=== PATIENT | male | born 1985 | race American Indian/Alaskan Native ===

== ENCOUNTER 2019-12-23 12:29 | Emergency (ER) | payer SELFPAY | END 2019-12-23 14:00 | disposition left against medical advice (07) | LOC: ED 12:29 | DX: M25.549 Pain in joints of unspecified hand (principal); Z53.21 Procedure and treatment not carried out due to patient leaving prior to being seen by health care provider ==

== ENCOUNTER 2020-04-21 00:15 | Observation (INO) | payer MEDICARE ==
[2020-04-21 02:13] LABS: Basophils % (Auto) 0.4 % (0.0-1.8); Eosinophils % (Auto) 3.2 % (0.0-4.3); Hematocrit 40.2 % (35.5-45.6); Hemoglobin 13.5 gm/dl (11.8-15.2); Lymphocytes % (Auto) 34.6 % (13.4-35.0); Mean Corpuscular HGB Conc 34 % (32-34); Mean Corpuscular Volume 88 fl (84-94); Monocytes % (Auto) 12.7 % (0.0-7.3); Platelet Count 292 K/mm3 (140-440); Red Blood Count 4.58 M/mm3 (3.65-5.03); Red Cell Distribution Width 14.7 % (13.2-15.2)
[2020-04-21 02:14] LABS: Basophils # (Auto) 0.1 K/mm3 (0.0-0.1); Eosinophils # (Auto) 0.4 K/mm3 (0.0-0.4); Monocytes # (Auto) 1.7 K/mm3 (0.0-0.8)
[2020-04-21 02:36] LABS: Alanine Aminotransferase 43 units/L (7-56); Albumin 4.2 g/dL (3.9-5); BUN/Creatinine Ratio 28; Blood Urea Nitrogen 22 mg/dL (9-20); Hemolysis Index 7
[2020-04-21 03:10] LABS: Bilirubin,Urine NEG (Negative); Blood,Urine SM (Negative); Color,Urine Straw (Yellow); Protein,Urine <15 mg/dL mg/dL (Negative); Urobilinogen,Urine < 2.0 mg/dL (<2.0); WBC,Urine < 1.0 /HPF (0.0-6.0)
[2020-04-21] MEDS ORDERED: SODIUM CHLORIDE 0.9% 1000 ML 1,000 ML IV ONE (04:36)
[2020-04-21] MEDS ORDERED: PANTOPRAZOLE 40 MG INJ IV ONE (04:36)
--- NOTE | 2020-04-21 04:44 | Emergency Department Report ---
ED General Adult HPI - General Chief complaint: Abdominal Pain Stated complaint: NAUSEA/ABD PAIN/BODYACHE Time Seen by Provider: 04/21/20 03:45 Source: patient Mode of arrival: Ambulatory Limitations: No Limitations - Related Data Allergies Allergy/AdvReac Type Severity Reaction Status Date / Time codeine Allergy Unknown Verified 12/22/19 15:04 ED Review of Systems ROS: Stated complaint: NAUSEA/ABD PAIN/BODYACHE Other details as noted in HPI ED Past Medical Hx - Past Medical History Previous Medical History?: Yes Hx Psychiatric Treatment: Yes (Bipolar, Schizophrenia) - Surgical History Past Surgical History?: No - Social History Smoking Status: Never Smoker Substance Use Type: None ED Physical Exam - General Limitations: No Limitations ED Course Vital Signs 04/21/20 01:36 Temperature 97.3 F L Pulse Rate 77 Respiratory 18 Rate Blood Pressure 132/83 O2 Sat by Pulse 97 Oximetry ED Medical Decision Making - Lab Data Result diagrams: 04/21/20 01:49 04/21/20 01:49 Critical care attestation.: If time is entered above; I have spent that time in minutes in the direct care of this critically ill patient, excluding procedure time. ED Disposition Condition: Stable
--- NOTE | 2020-04-21 05:37 | Event Note ---
ED Screening Note Date of service: 04/21/20 Time: 05:35 ED Screening Note: Patient complains of sudden onset of upper/mid abdominal pain x yesterday History of GERD and IBS + Nausea, denies vomiting Tenderness to palpation noted in the epigastrium/periumbilical area on exam This initial assessment/diagnostic orders/clinical plan/treatment(s) is/are subject to change based on patients health status, clinical progression and re- assessment by fellow clinical providers in the ED. Further treatment and workup at subsequent clinical providers discretion. Patient/guardian urged not to elope from the ED as their condition may be serious if not clinically assessed and managed. Initial orders include: Labs CT abdomen IV Protonix
--- NOTE | 2020-04-21 06:04 | Cat Scan Report ---
CT ABDOMEN AND PELVIS WITH IV CONTRAST INDICATION: Upper abdominal pain TECHNIQUE: Following the administration of intravenous contrast, multiple axial CT images of the abdo men and pelvis were acquired. Sagittal and coronal reformats were obtained. All CT performed at this facility utilize dose reduction techniques including automated exposure control, iterative reconstru ction and weight based dosing when appropriate to reduce patient radiation dose to as low as reasonab ly achievable. COMPARISON: None FINDINGS: Limited imaging of the bilateral lung bases demonstrates no acute abnormality. ABDOMEN: There is moderate wall thickening and hyperenhancement of the gallbladder. Radiodense sludge versus s tones are noted. The common bile duct is dilated measuring 8 mm. The liver, spleen, pancreas, bilater al adrenal glands and bilateral kidneys show no evidence of acute abnormality. There are small nonobs tructing bilateral intrarenal stones. The abdominal aorta is normal in caliber. There is no evidence of bowel obstruction. The appendix is visualized and appears normal. PELVIS: No free fluid is seen within the pelvis. The urinary bladder appears normal. BONES AND SOFT TISSUES: Evaluation of bony structures demonstrates no evidence of acute bony abnormal ity. Soft tissue structures appear grossly normal. IMPRESSION: 1. Moderate wall thickening and hyperenhancement of the gallbladder wall representing cholecystitis. There is radiodense sludge versus stones within the gallbladder. 2. Dilatation of the common bile duct without evidence for radiodense obstructing stone. Signer Name: Breann Jones MD Signed: 04/21/2020 5:59 AM Workstation Name: [id number]
[2020-04-21] MEDS ORDERED: ONDANSETRON 4 MG/2 ML INJ IV ONE (06:08)
[2020-04-21] MEDS ORDERED: MORPHINE 4 MG/1 ML INJ IV ONE (06:08)
[2020-04-21] MEDS ORDERED: PIPERACIL/TAZOBACTA 4.5/NS 100 4.5 GM/100 ML VIAL IV ONE (06:09)
--- NOTE | 2020-04-21 06:15 | Emergency Department Report ---
ED General Adult HPI - General Chief complaint: Abdominal Pain Stated complaint: NAUSEA/ABD PAIN/BODYACHE Time Seen by Provider: 04/21/20 03:45 Source: patient Mode of arrival: Ambulatory Limitations: No Limitations - History of Present Illness Initial comments: Patient complains of sudden onset of upper/mid abdominal pain x yesterday History of GERD and IBS + Nausea, denies vomiting or fever No previous abdominal surgeries per patient - Related Data Allergies Allergy/AdvReac Type Severity Reaction Status Date / Time codeine Allergy Unknown Verified 12/22/19 15:04 ED Review of Systems ROS: Stated complaint: NAUSEA/ABD PAIN/BODYACHE Other details as noted in HPI Constitutional: denies: chills, diaphoresis, fever, malaise, weakness ENT: denies: throat pain Respiratory: denies: cough, shortness of breath Cardiovascular: denies: chest pain Endocrine: denies: excessive sweating Gastrointestinal: abdominal pain, nausea Genitourinary: denies: urgency, dysuria, frequency Skin: denies: change in color Neurological: denies: headache Hematological/Lymphatic: denies: swollen glands ED Past Medical Hx - Past Medical History Previous Medical History?: Yes Hx Psychiatric Treatment: Yes (Bipolar, Schizophrenia) - Surgical History Past Surgical History?: No - Social History Smoking Status: Never Smoker Substance Use Type: None ED Physical Exam - General Limitations: No Limitations General appearance: alert, in no apparent distress - Head Head exam: Present: atraumatic, normocephalic - Eye Eye exam: Present: normal appearance. Absent: scleral icterus - Respiratory Respiratory exam: Present: normal lung sounds bilaterally. Absent: respiratory distress - Cardiovascular Cardiovascular Exam: Present: regular rate, normal rhythm. Absent: systolic murmur, diastolic murmur, rubs, gallop - GI/Abdominal GI/Abdominal exam: Present: soft, distended, tenderness (Epigastric, periumbilical, right upper quadrant), normal bowel sounds. Absent: guarding, rebound, rigid - Extremities Exam Extremities exam: Present: full ROM - Back Exam Back exam: Present: full ROM - Neurological Exam Neurological exam: Present: alert, oriented X3, normal gait - Psychiatric Psychiatric exam: Present: normal affect, normal mood - Skin Skin exam: Present: warm, dry, intact, normal color. Absent: rash, diaphoretic ED Course Vital Signs 04/21/20 01:36 Temperature 97.3 F L Pulse Rate 77 Respiratory 18 Rate Blood Pressure 132/83 O2 Sat by Pulse 97 Oximetry ED Medical Decision Making - Lab Data Result diagrams: 04/21/20 01:49 04/21/20 01:49 Lab Results 04/21/20 04/21/20 04/21/20 Range/Units 01:49 01:49 Unknown WBC 13.2 H (4.5-11.0) K/mm3 RBC 4.58 (3.65-5.03) M/mm3 Hgb 13.5 (11.8-15.2) gm/dl Hct 40.2 (35.5-45.6) % MCV 88 (84-94) fl MCH 30 (28-32) pg MCHC 34 (32-34) % RDW 14.7 (13.2-15.2) % Plt Count 292 (140-440) K/mm3 Lymph % (Auto) 34.6 (13.4-35.0) % [place] % (Auto) 12.7 H (0.0-7.3) % Eos % (Auto) 3.2 (0.0-4.3) % Baso % (Auto) 0.4 (0.0-1.8) % Lymph # (Auto) Veneer Measurer [place] # (Auto) 1.7 H (0.0-0.8) K/mm3 Eos # (Auto) 0.4 (0.0-0.4) K/mm3 Baso # (Auto) 0.1 (0.0-0.1) K/mm3 Seg Neutrophils % 49.1 (40.0-70.0) % Seg Neutrophils # 6.5 (1.8-7.7) K/mm3 Sodium 141 (137-145) mmol/L Potassium 4.4 (3.6-5.0) mmol/L Chloride 102.5 (98-107) mmol/L Carbon Dioxide 28 (22-30) mmol/L Anion Gap 15 mmol/L BUN 22 H (9-20) mg/dL Creatinine 0.8 (0.8-1.3) mg/dL Estimated GFR > 60 ml/min BUN/Creatinine Ratio 28 % Glucose 98 (75-100) mg/dL Calcium 10.0 (8.4-10.2) mg/dL Total Bilirubin < 0.20 (0.1-1.2) mg/dL AST 17 (5-40) units/L ALT 43 (7-56) units/L Alkaline Phosphatase 61 (35-129) units/L Total Protein 6.8 (6.3-8.2) g/dL Albumin 4.2 (3.9-5) g/dL Albumin/Globulin Ratio 1.6 % Lipase 33 (13-60) units/L Urine Color Straw (Yellow) Urine Turbidity Clear (Clear) Urine pH 6.0 (5.0-7.0) Ur Specific [place] 1.010 (1.003-1.030) Urine Protein <15 mg/dl (Negative) mg/dL Urine Glucose (UA) Neg (Negative) mg/dL Urine Ketones Neg (Negative) mg/dL Urine Blood Sm (Negative) Urine Nitrite Neg (Negative) Urine Bilirubin Neg (Negative) Urine Urobilinogen < 2.0 (<2.0) mg/dL Ur Leukocyte Esterase Neg (Negative) Urine WBC (Auto) < 1.0 (0.0-6.0) /HPF Urine RBC (Auto) 1.0 (0.0-6.0) /HPF U Epithel Cells (Auto) 1.0 (0-13.0) /HPF - Medical Decision Making + Cholecystitis noted on CT abdomen. Right upper quadrant ultrasound ordered. White count noted to be 13.2. No fever or tachycardia noted. Morphine, Zofran, and Zosyn ordered. Patient made n.p.o. States last oral intake was around [address] Mccoy, general surgery-patient to be admitted to inpatient. Spoke with [facility] to bridge pt to Dr. Talbert. Critical care attestation.: If time is entered above; I have spent that time in minutes in the direct care of this critically ill patient, excluding procedure time. ED Disposition Clinical Impression: Acute cholecystitis Disposition: 09 OP ADMIT IP TO THIS HOSP Is pt being admited?: Yes Condition: Stable Referrals: TEE DESOUZA MD [Primary Care Provider] - 3-5 Days
--- NOTE | 2020-04-21 06:57 | Ultrasound Report ---
ULTRASOUND ABDOMEN, LIMITED (RIGHT UPPER QUADRANT) INDICATION: Right upper quadrant pain. COMPARISON: CT of the abdomen and pelvis, 04/21/2020 FINDINGS: Pancreas: Visualized portion shows no significant abnormality. Liver: The liver appears normal and size and echotexture. Gallbladder: There is thickening of the gallbladder wall measuring 4 mm. Multiple shadowing stones ar e present within the gallbladder. No pericholecystic fluid is visualized. Bile ducts: Common Bile Duct is upper limits of normal in caliber measuring 6 mm Free fluid: None. Additional Findings: None. IMPRESSION: 1. Wall thickening of the gallbladder as seen on the recent CT of the abdomen and pelvis suggesting c holecystitis. 2. Multiple shadowing gallstones. Signer Name: Breann Jones MD Signed: 04/21/2020 6:52 AM Workstation Name: [id number]
--- NOTE | 2020-04-21 07:17 | History and Physical Report ---
History of Present Illness Date of examination: 04/21/20 Chief complaint: Abdominal pain History of present illness: 34-year-old male with past medical history significant for schizophrenia, bi polar disorder, diabetes mellitus, depression, asthma presented to the emergency department with complaints of epigastric pain, nausea and vomiting. Patient states symptoms has been going on for the last 4 years intermittently and getting worse recently. Currently he stated pain is 10 out of 10, crampy, with radiation to the back. He said he has persistent nausea and vomiting especially in the morning. Patient said he was in [place] and they took him out last night and abscess and he presented to the emergency department. Work-up in the emergency department showed leukocytosis, hyperglycemia. Vital signs are stable. CT abdomen pelvis, abdominal ultrasound was done and showed suggestive of cholecystitis. No obstructing stone identified. Neurosurgery was consulted in the emergency department and patient admitted for cholecystectomy. Past History Past Medical History: diabetes, other (Bipolar disorder, hypothyroidism) Past Surgical History: Other (knee) Social history: full code. denies: smoking, alcohol abuse, prescription drug abuse Family history: no significant family history Medications and Allergies Allergies Allergy/AdvReac Type Severity Reaction Status Date / Time codeine Allergy Unknown Verified 12/22/19 15:04 Home Medications Medication Instructions Recorded Confirmed Last Taken Type Albuterol Sulfate [Proair 90 mcg IH DAILY 04/21/20 04/21/20 04/20/20 21:00 History Digihaler] Divalproex Dr [DepaKOTE DR] 250 mg PO TID 04/21/20 04/21/20 04/20/20 21:00 History Gabapentin [Neurontin] 600 mg PO BID 04/21/20 04/21/20 04/20/20 21:00 History OLANzapine [ZyPREXA] 10 mg PO QHS 04/21/20 04/21/20 04/20/20 21:00 History Sertraline HCl [Zoloft] 25 mg PO DAILY 04/21/20 04/21/20 04/20/20 21:00 History Active Meds: Active Medications Dextrose/Sodium Chloride (D5/0.45ns) 1,000 mls @ 75 mls/hr IV DIRECT VERONICA Morphine Sulfate (Morphine 2 Mg/1 Ml Inj) 2 mg IV Q3H PRN PRN Reason: Pain, Moderate (4-6) Ondansetron HCl (Ondansetron 4 Mg/2 Ml Inj) 4 mg IV Q6H PRN PRN Reason: N/V unrelieved by Reglan Exam - Physical Exam Narrative exam: Not in cardiopulmonary distress. The patient appeared well nourished and normally developed. Vital signs as documented. Head exam is unremarkable. No scleral icterus . Neck is without jugular venous distension, thyromegaly, or carotid bruits. Lungs are clear to auscultation. Cardiac exam reveals regular rate and Rhythm. Abdominal exam reveals normal bowel sounds, nontender, no organomegaly. Extremities are nonedematous and both femoral and pedal pulses are normal. CD REACTOR OPERATOR: Alert and oriented 3. No focal weakness. - Constitutional Vitals: Temp Pulse Resp BP Pulse Ox 97.3 F L 77 18 132/83 97 04/21/20 01:36 04/21/20 01:36 04/21/20 01:36 04/21/20 01:36 04/21/20 01:36 Results - Labs CBC & Chem 7: 04/21/20 01:49 04/21/20 01:49 Labs: Laboratory Last Values WBC 13.2 K/mm3 (4.5-11.0) H 04/21/20 01:49 RBC 4.58 M/mm3 (3.65-5.03) 04/21/20 01:49 Hgb 13.5 gm/dl (11.8-15.2) 04/21/20 01:49 Hct 40.2 % (35.5-45.6) 04/21/20 01:49 MCV 88 fl (84-94) 04/21/20 01:49 MCH 30 pg (28-32) 04/21/20 01:49 MCHC 34 % (32-34) 04/21/20 01:49 RDW 14.7 % (13.2-15.2) 04/21/20 01:49 Plt Count 292 K/mm3 (140-440) 04/21/20 01:49 Lymph % (Auto) 34.6 % (13.4-35.0) 04/21/20 01:49 [place] % (Auto) 12.7 % (0.0-7.3) H 04/21/20 01:49 Eos % (Auto) 3.2 % (0.0-4.3) 04/21/20 01:49 Baso % (Auto) 0.4 % (0.0-1.8) 04/21/20 01:49 Lymph # (Auto) Refractory Repairer 04/21/20 01:49 [place] # (Auto) 1.7 K/mm3 (0.0-0.8) H 04/21/20 01:49 Eos # (Auto) 0.4 K/mm3 (0.0-0.4) 04/21/20 01:49 Baso # (Auto) 0.1 K/mm3 (0.0-0.1) 04/21/20 01:49 Seg Neutrophils % 49.1 % (40.0-70.0) 04/21/20 01:49 Seg Neutrophils # 6.5 K/mm3 (1.8-7.7) 04/21/20 01:49 Sodium 141 mmol/L (137-145) 04/21/20 01:49 Potassium 4.4 mmol/L (3.6-5.0) 04/21/20 01:49 Chloride 102.5 mmol/L (98-107) 04/21/20 01:49 Carbon Dioxide 28 mmol/L (22-30) 04/21/20 01:49 Anion Gap 15 mmol/L 04/21/20 01:49 BUN 22 mg/dL (9-20) H 04/21/20 01:49 Creatinine 0.8 mg/dL (0.8-1.3) 04/21/20 01:49 Estimated GFR > 60 ml/min 04/21/20 01:49 BUN/Creatinine Ratio 28 % 04/21/20 01:49 Glucose 98 mg/dL (75-100) 04/21/20 01:49 Calcium 10.0 mg/dL (8.4-10.2) 04/21/20 01:49 Total Bilirubin < 0.20 mg/dL (0.1-1.2) 04/21/20 01:49 AST 17 units/L (5-40) 04/21/20 01:49 ALT 43 units/L (7-56) 04/21/20 01:49 Alkaline Phosphatase 61 units/L (35-129) 04/21/20 01:49 Total Protein 6.8 g/dL (6.3-8.2) 04/21/20 01:49 Albumin 4.2 g/dL (3.9-5) 04/21/20 01:49 Albumin/Globulin Ratio 1.6 % 04/21/20 01:49 Lipase 33 units/L (13-60) 04/21/20 01:49 Urine Color Straw (Yellow) 04/21/20 Unknown Urine Turbidity Clear (Clear) 04/21/20 Unknown Urine pH 6.0 (5.0-7.0) 04/21/20 Unknown Ur Specific [place] 1.010 (1.003-1.030) 04/21/20 Unknown Urine Protein <15 mg/dl mg/dL (Negative) 04/21/20 Unknown Urine Glucose (UA) Neg mg/dL (Negative) 04/21/20 Unknown Urine Ketones Neg mg/dL (Negative) 04/21/20 Unknown Urine Blood Sm (Negative) 04/21/20 Unknown Urine Nitrite Neg (Negative) 04/21/20 Unknown Urine Bilirubin Neg (Negative) 04/21/20 Unknown Urine Urobilinogen < 2.0 mg/dL (<2.0) 04/21/20 Unknown Ur Leukocyte Esterase Neg (Negative) 04/21/20 Unknown Urine WBC (Auto) < 1.0 /HPF (0.0-6.0) 04/21/20 Unknown Urine RBC (Auto) 1.0 /HPF (0.0-6.0) 04/21/20 Unknown U Epithel Cells (Auto) 1.0 /HPF (0-13.0) 04/21/20 Unknown [place]/IV: IV Catheter Type [Left INT / Saline Lock Antecubital] Assessment and Plan Assessment and plan: Acute cholecystitis - CT abdomen/Pelvis, RUQ us suggestive of cholecystitis - General surgery will do surgery today - pain control - On IV antibiotics Schizophrenia, Paranoia, Bipolar disorder - Continue with home medications Hx of Asthma - Stable - Continue home medications Homelessness - [employer] worker consulted DVT prophylaxis - SCDs because of the planned surgery Code status - Full code Management plan was discussed with the patient and agreed with the plan of care. Advance Directives: Yes VTE prophylaxis?: Mechanical Contraindication Mechanical VTE Prophylaxis: Treatment Not Indicated Reason for no VTE Prophylaxis: Surgical contraindication Plan of care discussed with patient/family: Yes
[2020-04-21] MEDS ORDERED: ONDANSETRON 4 MG/2 ML INJ IV PRN (08:00)
[2020-04-21] MEDS ORDERED: D5W/0.45% NACL 1,000 ML IV SCH (08:00)
--- NOTE | 2020-04-21 10:32 | Consultation ---
History of Present Illness Consult date: 04/21/20 Reason for consult: abdominal pain Chief complaint: abdominal pain - History of present illness History of present illness: 34 yo M with hx of asthma who presents to ER with c/o intermittent epigastric ab dominal pain that started yesterday. Patient states he has had pain like this in the past and it has been episodic, intermittent since 2011. He states the pain does not radiate. It is not associated with eating certain foods. +nausea and dry heaving. No alleviating or exacerbating factors. Patient states he lost 100lbs intentionally in 2017. He did have an EGD and cscope many years ago which he states was unremarkable. No f/c, cp, sob. W/U in ER revealed acute cholecystitis and surgery consulted. Past History Past Medical History: GERD, other (asthma) Past Surgical History: Other (left neck surgery for tortocollis, left knee s urgery) Social history: Lives alone (Homeless), smoking (marijuana) Family history: no significant family history Medications and Allergies Allergies Allergy/AdvReac Type Severity Reaction Status Date / Time codeine Allergy Unknown Verified 12/22/19 15:04 Home Medications Medication Instructions Recorded Confirmed Last Taken Type Albuterol Sulfate [Proair 90 mcg IH DAILY 04/21/20 04/21/20 04/20/20 21:00 History Digihaler] Divalproex [Lisa RAMIREZ] 250 mg PO TID 04/21/20 04/21/20 04/20/20 21:00 History Gabapentin [Neurontin] 600 mg PO BID 04/21/20 04/21/20 04/20/20 21:00 History OLANzapine [ZyPREXA] 10 mg PO QHS 04/21/20 04/21/20 04/20/20 21:00 History Sertraline HCl [Zoloft] 25 mg PO DAILY 04/21/20 04/21/20 04/20/20 21:00 History Active Meds: Active Medications Dextrose/Sodium Chloride (D5/0.45ns) 1,000 mls @ 75 mls/hr IV DIRECT VERONICA Morphine Sulfate (Morphine 2 Mg/1 Ml Inj) 2 mg IV Q3H PRN PRN Reason: Pain, Moderate (4-6) Ondansetron HCl (Ondansetron 4 Mg/2 Ml Inj) 4 mg IV Q6H PRN PRN Reason: N/V unrelieved by Cyrus Review of Systems All systems: negative (10 pt ROS performed and negative except for that listed in HPI) Exam Vital Signs Temp Pulse Resp BP Pulse Ox 97.3 F L 77 18 132/83 97 04/21/20 01:36 04/21/20 01:36 04/21/20 01:36 04/21/20 01:36 04/21/20 01:36 Narrative exam: Gen: AAOx3. NAD ENT: No scleral icterus or conjunctival pallor CV: s1, S2+ Resp: even and unlabored Abd: soft, ND, +epigastric and RUQ TTP. No r/r/g Ext: no c/c/e Results - Labs 04/21/20 01:49 04/21/20 01:49 Abnormal lab results 04/21/20 04/21/20 Range/Units 01:49 01:49 WBC 13.2 H (4.5-11.0) K/mm3 [place] % (Auto) 12.7 H (0.0-7.3) % [place] # (Auto) 1.7 H (0.0-0.8) K/mm3 BUN 22 H (9-20) mg/dL Diabetes panel 04/21/20 Range/Units 01:49 Sodium 141 (137-145) mmol/L Potassium 4.4 (3.6-5.0) mmol/L Chloride 102.5 (98-107) mmol/L Carbon Dioxide 28 (22-30) mmol/L BUN 22 H (9-20) mg/dL Creatinine 0.8 (0.8-1.3) mg/dL Glucose 98 (75-100) mg/dL Calcium 10.0 (8.4-10.2) mg/dL AST 17 (5-40) units/L ALT 43 (7-56) units/L Alkaline Phosphatase 61 (35-129) units/L Total Protein 6.8 (6.3-8.2) g/dL Albumin 4.2 (3.9-5) g/dL Calcium panel 04/21/20 Range/Units 01:49 Calcium 10.0 (8.4-10.2) mg/dL Albumin 4.2 (3.9-5) g/dL Pituitary panel 04/21/20 Range/Units 01:49 Sodium 141 (137-145) mmol/L Potassium 4.4 (3.6-5.0) mmol/L Chloride 102.5 (98-107) mmol/L Carbon Dioxide 28 (22-30) mmol/L BUN 22 H (9-20) mg/dL Creatinine 0.8 (0.8-1.3) mg/dL Glucose 98 (75-100) mg/dL Calcium 10.0 (8.4-10.2) mg/dL Adrenal panel 04/21/20 Range/Units 01:49 Sodium 141 (137-145) mmol/L Potassium 4.4 (3.6-5.0) mmol/L Chloride 102.5 (98-107) mmol/L Carbon Dioxide 28 (22-30) mmol/L BUN 22 H (9-20) mg/dL Creatinine 0.8 (0.8-1.3) mg/dL Glucose 98 (75-100) mg/dL Calcium 10.0 (8.4-10.2) mg/dL Total Bilirubin < 0.20 (0.1-1.2) mg/dL AST 17 (5-40) units/L ALT 43 (7-56) units/L Alkaline Phosphatase 61 (35-129) units/L Total Protein 6.8 (6.3-8.2) g/dL Albumin 4.2 (3.9-5) g/dL - Imaging CT scan - abdomen: report reviewed, image reviewed CT scan - pelvis: report reviewed, image reviewed US - abdomen: report reviewed, image reviewed Assessment and Plan 34 yo M with acute cholecystitis Plan: 1. NPO 2. IVF 3. IV abx 4. prn pain and nausea control 5. Recommend cholecystectomy. Discussed all risks, benefits, alternatives to surgery with patient and questions answered. Consent obtained. Added to OR schedule for today. 6. Patient states he was recently asked to leave [place]. He is essentially homeless. Will obtain social work consult. Patient asked me to update his mother Ms. Baires @ [phone]. I informed her that he is having surgery. Thank you, please call with questions. Evaluation and treatment of this patient was during the time of the national and state emergency arising from COVID19 coronavirus pandemic. Treatment and procedures performed meet the current and available best practice and guidelines for patient during the COVID pandemic.
[2020-04-21] MEDS: LACTATED RINGERS 1,000 ML IV SCH ×2 (13:10→22:17)
--- NOTE | 2020-04-21 13:15 | Anesthesia Consultation ---
Anesthesia Consult and Med Hx Date of service: 04/21/20 - Airway Anesthetic Teeth Evaluation: Good (Missing) ROM Head & Neck: Adequate Mental/Hyoid Distance: Adequate Mallampati Class: Class II Intubation Access Assessment: Good - Pre-Operative Health Status ASA Pre-Surgery Classification: ASA2, Emergency Proposed Anesthetic Plan: General - Pulmonary Hx Smoking: No Hx Asthma: Yes (Last inhaler 3 weeks ago) Hx Respiratory Symptoms: No (+2FS) Hx Sleep Apnea: No - Cardiovascular System Hx Hypertension: No - Central Nervous System Hx Psychiatric Problems: Yes (Bipolar, schizophrenia, depression) - Gastrointestinal Hx Gastroesophageal Reflux Disease: No - Endocrine Hx Non-Insulin Dependent Diabetes: Yes Hx Hypothyroidism: Yes - Other Systems Hx Obesity: No
--- NOTE | 2020-04-21 13:16 | Anesthesia Day of Surgery ---
Anesthesia Day of Surgery - Day of Surgery Patient Examined: Yes Patient H&P Reviewed: Yes Patient is NPO: Yes
[2020-04-21] MEDS ORDERED: ONDANSETRON 4 MG/2 ML INJ ONE (13:30)
[2020-04-21] MEDS ORDERED: propofoL 200 MG/20 ML VIAL IV ONE (13:30)
[2020-04-21] MEDS ORDERED: dexAMETHasone 20 MG/5 ML VIAL ONE (13:30)
[2020-04-21] MEDS ORDERED: HYDROmorphone 1 MG/1 ML INJ ONE (13:30)
[2020-04-21] MEDS ORDERED: LIDOCAINE MPF (2%) 20 MG/1 ML VIAL 5 ML ONE (13:30)
[2020-04-21] MEDS ORDERED: ROCURONIUM 50 MG/5 ML INJ IV ONE (13:30)
[2020-04-21] MEDS ORDERED: LACTATED RINGERS 1,000 ML ONE ×2 (13:46→15:53)
[2020-04-21] MEDS ORDERED: GLYCOPYRROLATE 0.4 MG/2 ML INJ ONE ×2 (14:05→15:50)
[2020-04-21] MEDS ORDERED: LIDOCAINE (1%) 10 MG/1 ML VIAL 20 ML MDV ONE (14:26)
[2020-04-21] MEDS ORDERED: BUPIVACAINE/PF (0.5%) 5 MG/1 ML 30 ML VIAL INFILTRATI ONE ×2 (14:26→14:51)
[2020-04-21] MEDS ORDERED: SODIUM CHLORIDE 0.9% 100 ML ONE (14:47)
[2020-04-21] MEDS ORDERED: LIDOCAINE (1%) 10 MG/1 ML VIAL 20 ML MDV INFILTRATI ONE (14:51)
[2020-04-21] MEDS ORDERED: SODIUM CHLORIDE 0.9% IRR 1,500 ML BOTTLE IR ONE (14:52)
[2020-04-21] MEDS ORDERED: SODIUM CHLORIDE 0.9% 100 ML IVPB IV ONE (14:52)
[2020-04-21] MEDS ORDERED: SODIUM CHLORIDE 0.9% IRRIG SOLN 2000 ML IR ONE (15:45)
[2020-04-21] MEDS ORDERED: KETOROLAC 30 MG/1 ML INJ ONE (15:47)
[2020-04-21] MEDS ORDERED: NEOSTIGMINE 10MG/10 ML INJ MDV ONE (15:49)
--- NOTE | 2020-04-21 16:29 | Fluoroscopy Report ---
FLUOROSCOPY CHOLANGIOGRAM OPERATIVE HISTORY: Gallstones FINDINGS: 52 seconds of fluoroscopy time was provided by radiology during intraoperative cholangiogra m by the surgeon. 3 fluoroscopic images demonstrate contrast in the biliary tree which spills into th e duodenum. There is no evidence for choledocholithiasis, biliary leak or abnormal dilatation. Signer Name: Romaine Alejo Jr, MD Signed: 04/21/2020 4:25 PM Workstation Name: [id number]
--- NOTE | 2020-04-21 16:30 | Operative Report ---
Operative Report Operative Report: Date of operation: 04/21/2020 Preoperative diagnosis: Acute cholecystitis postOperative diagnoses: Acute calculus cholecystitis, choledocholithiasis Procedure performed: Laparoscopic cholecystectomy with intraoperative cholangiogram Surgeon: Mayela Anthony DO Floor Care Specialist: Nilson Morales MD Anesthesia: Gen. endotracheal anesthesia, local Findings: Thickened gallbladder with moderate sized stones. Cholangiogram showed normal intrahepatic duct filling, + filling defect at the distal common bile duct Specimen: Gallbladder Estimated blood loss: 30cc Complications: None Disposition: Stable to PACU HPI an indication: 34-year-old male who presented to the hospital with complaints of epigastric abdominal pain, acute onset. He was found to have acute cholecystitis on imaging consisting of a CAT scan of abdomen and pelvis and a right upper quadrant ultrasound. Common bile duct was mildly dilated at [address] scan and 6 mm on the right upper quadrant ultrasound. LFTs were within normal limits along with bilirubin. It was recommended that the patient undergo laparoscopic cholecystectomy with IOC. All risk, benefits, alternatives to surgery were discussed with the patient questions answered. Consent was obtained. Procedure in detail: The patient was identified in the preoperative area and taken back to the operating room, placed on the operating room table in supine position. After anesthesia was induced, the abdomen was prepped and draped in usual sterile fashion and timeout was performed. Local anesthetic was infiltrated into all of the skin incision sites. Using an 11 blade a supraumbilical incision was made and through this a Veress needle was used to insufflate the abdomen. The position of the veress needle was confirmed with the saline drop test and the abdomen was then insufflated to 15 mmHg. The veress needle was then removed and a 5 mm Optiview trocar placed through this incision. The abdomen was then inspected and there was no underlying injury to any of the abdominal contents. An additional 12 mm subxyphoid port, and 2, 5mm RUQ ports were then placed under direct visualization. The patient was then placed into reverse Trendelberg and tilted to the left. The gallbladder was visualized. There were omental adhesions to the gallbladder. The gallbladder was grasped and retracted cephalad and above the liver. The adhesions from the omentum to the gallbladder were carefully dissected using hook electrocautery. The cystic duct and artery were then carefully dissected and the critical view obtained, and the cystic duct and artery were the only two structures seen entering the gallbladder. 2 clips were placed on the proximal aspect of the cystic artery and one distally and the artery transected in between the clips using EndoShears. One clip was placed on the distal aspect of the cystic duct and a duct anatomy created using EndoShears. An angiocatheter was placed into the cystic duct and secured using an Brink clamp. Injectable saline was used to test the angiocatheter and this flushed without extravasation. A cholangiogram was then performed. Omnipaque dye was injected through the angiocatheter into the cystic duct. There was moderate resistance as the cystic duct was very small in diameter. There was filling of the common bile duct dylan ng with intrahepatic biliary tree. There appeared to be a filling defect at the distal common bile duct with only a trickle of contrast passing distally. There was minimal filling of the small bowel. The angiocatheter was then removed and 3 clips placed on the proximal aspect of the cystic duct. The duct was transected using EndoShears. The gallbladder was then dissected off the liver bed using electrocautery with hemostasis being achieved along the way. The gallbladder was placed into a Endo Catch bag and removed from the abdomen via the 12mm port. The gallbladder fossa was then inspected and there was no identifiable bleeding or bile leakage. The clips on the cystic duct and artery were visualized and intact. The patient was then placed into neutral position and Morison's pouch and gallbladder fossa was irrigated. Hemostasis was ensured. The 12 mm port fascia was closed with 2, interrupted 0 Vicryl sutures using the Yang Linder device. The remaining ports were removed under direct visualization. Skin incisions were closed with 4-0 Monocryl subcuticular stitches and skin glue. All skin incisions were once again infiltrated with local anesthetic. At the end case all sponge, instrument, sharp counts were correct 2. The patient was awoken from anesthesia, extubated, taken to PACU in stable condition.
[2020-04-21] MEDS ORDERED: traMADol 50 MG TAB PO PRN (16:33)
--- NOTE | 2020-04-21 17:00 | Event Note ---
Date: 04/21/20 Pt s/p Lap izabella with IOC. ?Filling defect at distal CBD. Rads read reviewed - no biliary obstruction. Patient with normal bili and LFTs prior to surgery. Will obtain repeat LFTs in am and MRCP to further evaluate for choledocolithiasis. If MRCP positive, will consult GI.
--- NOTE | 2020-04-21 17:40 | Post Anesthesia Evaluation ---
- Post Anesthesia Evaluation Patient Participated: Yes Airway Patent: Yes Stable Respiratory Function: Yes Nausea/Vomiting: No Temp > 96.8F: Yes Pain Manageable: Yes Adequeate Hydration: Yes Anesthesia Complications: No Block Receding Appropriately: Not Applicable Patient on Ventilator: No
[2020-04-21] MEDS: PIPERACIL/TAZOBACTA 4.5/NS 100 4.5 GM/100 ML VIAL IV SCH (22:13)
[2020-04-21] MEDS: MORPHINE 2 MG/1 ML INJ IV PRN (22:17)
[2020-04-21] MEDS ORDERED: ALBUTEROL 8.5 GM MDI INHALATION IH PRN (22:56)
[2020-04-21] MEDS ORDERED: GABAPENTIN 600 MG PO SCH (23:00)
[2020-04-21] MEDS ORDERED: GABAPENTIN 300 MG CAP PO SCH (23:00)
[2020-04-21] MEDS: SERTRALINE 50 MG TAB PO SCH (23:47)
[2020-04-21] MEDS: DIVALPROEX DR 250 MG TAB PO SCH (23:48)
[2020-04-22] MEDS: PIPERACIL/TAZOBACTA 4.5/NS 100 4.5 GM/100 ML VIAL IV SCH ×3 (05:42→20:26)
[2020-04-22 06:17] LABS: Basophils % (Auto) 0.2 % (0.0-1.8); Eosinophils % (Auto) 0.3 % (0.0-4.3); Hematocrit 37.2 % (35.5-45.6); Hemoglobin 12.4 gm/dl (11.8-15.2); Lymphocytes # (Auto) 1.4 K/mm3 (1.2-5.4); Lymphocytes % (Auto) 15.2 % (13.4-35.0); Mean Corpuscular HGB Conc 33 % (32-34); Mean Corpuscular Volume 89 fl (84-94); Monocytes # (Auto) 0.9 K/mm3 (0.0-0.8); Monocytes % (Auto) 9.7 % (0.0-7.3); Platelet Count 243 K/mm3 (140-440); Red Blood Count 4.19 M/mm3 (3.65-5.03); Red Cell Distribution Width 15.2 % (13.2-15.2)
[2020-04-22 06:33] LABS: Alanine Aminotransferase 189 units/L (7-56); Albumin 3.3 g/dL (3.9-5); BUN/Creatinine Ratio 14; Blood Urea Nitrogen 11 mg/dL (9-20); Calcium 9.1 mg/dL (8.4-10.2); Hemolysis Index 3
[2020-04-22] MEDS: MORPHINE 2 MG/1 ML INJ IV PRN (06:46)
[2020-04-22] MEDS: SERTRALINE 50 MG TAB PO SCH (10:01)
[2020-04-22] MEDS: DIVALPROEX DR 250 MG TAB PO SCH ×3 (10:01→22:14)
[2020-04-22] MEDS: NICOTINE 14 MG/24 HR PATCH TD SCH (10:53)
--- NOTE | 2020-04-22 13:12 | Progress Note ---
Assessment and Plan Assessment and plan: Acute cholecystitis - CT abdomen/Pelvis, RUQ us suggestive of cholecystitis -Status post laparoscopic cholecystectomy - pain control - On IV antibiotics -Cholangiogram showed distal common bile duct defect and surgery recommend MRCP Schizophrenia, Paranoia, Bipolar disorder - Continue with home medications Hx of Asthma - Stable - Continue home medications Homelessness - die storage worker consulted DVT prophylaxis - SCDs because of the planned surgery Code status - Full code Management plan was discussed with the patient and agreed with the plan of care. History Interval history: Patient was seen and evaluated this morning Patient has minimal pain at the site of surgery Hospitalist Physical - Physical exam Narrative exam: Not in cardiopulmonary distress. The patient appeared well nourished and normally developed. Vital signs as documented. Head exam is unremarkable. No scleral icterus . Neck is without jugular venous distension, thyromegaly, or carotid bruits. Lungs are clear to auscultation. Cardiac exam reveals regular rate and Rhythm. Abdominal exam reveals normal bowel sounds, nontender, no organomegaly. Extremities are nonedematous and both femoral and pedal pulses are normal. SAFETY AND HEALTH MANAGER: Alert and oriented 3. No focal weakness. - Constitutional Vitals: Temp Pulse Resp BP Pulse Ox 98.0 F 56 L 20 111/57 98 04/22/20 11:36 04/22/20 11:36 04/22/20 11:36 04/22/20 11:36 04/22/20 11:36 Results - Labs CBC & Chem 7: 04/22/20 05:28 04/22/20 05:28 Labs: Laboratory Last Values WBC 9.0 K/mm3 (4.5-11.0) 04/22/20 05:28 RBC 4.19 M/mm3 (3.65-5.03) 04/22/20 05:28 Hgb 12.4 gm/dl (11.8-15.2) 04/22/20 05:28 Hct 37.2 % (35.5-45.6) 04/22/20 05:28 MCV 89 fl (84-94) 04/22/20 05:28 MCH 30 pg (28-32) 04/22/20 05:28 MCHC 33 % (32-34) 04/22/20 05:28 RDW 15.2 % (13.2-15.2) 04/22/20 05:28 Plt Count 243 K/mm3 (140-440) 04/22/20 05:28 Lymph % (Auto) 15.2 % (13.4-35.0) 04/22/20 05:28 [place] % (Auto) 9.7 % (0.0-7.3) H 04/22/20 05:28 Eos % (Auto) 0.3 % (0.0-4.3) 04/22/20 05:28 Baso % (Auto) 0.2 % (0.0-1.8) 04/22/20 05:28 Lymph # (Auto) 1.4 K/mm3 (1.2-5.4) 04/22/20 05:28 [place] # (Auto) 0.9 K/mm3 (0.0-0.8) H 04/22/20 05:28 Eos # (Auto) 0.0 K/mm3 (0.0-0.4) 04/22/20 05:28 Baso # (Auto) 0.0 K/mm3 (0.0-0.1) 04/22/20 05:28 Seg Neutrophils % 74.6 % (40.0-70.0) H 04/22/20 05:28 Seg Neutrophils # 6.7 K/mm3 (1.8-7.7) 04/22/20 05:28 Sodium 139 mmol/L (137-145) 04/22/20 05:28 Potassium 4.7 mmol/L (3.6-5.0) 04/22/20 05:28 Chloride 105.1 mmol/L (98-107) 04/22/20 05:28 Carbon Dioxide 26 mmol/L (22-30) 04/22/20 05:28 Anion Gap 13 mmol/L 04/22/20 05:28 BUN 11 mg/dL (9-20) 04/22/20 05:28 Creatinine 0.8 mg/dL (0.8-1.3) 04/22/20 05:28 Estimated GFR > 60 ml/min 04/22/20 05:28 BUN/Creatinine Ratio 14 % 04/22/20 05:28 Glucose 121 mg/dL (75-100) H 04/22/20 05:28 Lactic Acid 0.70 mmol/L (0.7-2.0) 04/21/20 06:45 Calcium 9.1 mg/dL (8.4-10.2) 04/22/20 05:28 Total Bilirubin 0.20 mg/dL (0.1-1.2) 04/22/20 05:28 AST 92 units/L (5-40) H 04/22/20 05:28 ALT 189 units/L (7-56) H 04/22/20 05:28 Alkaline Phosphatase 87 units/L (35-129) 04/22/20 05:28 Total Protein 5.8 g/dL (6.3-8.2) L 04/22/20 05:28 Albumin 3.3 g/dL (3.9-5) L 04/22/20 05:28 Albumin/Globulin Ratio 1.3 % 04/22/20 05:28 Lipase 33 units/L (13-60) 04/21/20 01:49 Urine Color Straw (Yellow) 04/21/20 Unknown Urine Turbidity Clear (Clear) 04/21/20 Unknown Urine pH 6.0 (5.0-7.0) 04/21/20 Unknown Ur Specific [place] 1.010 (1.003-1.030) 04/21/20 Unknown Urine Protein <15 mg/dl mg/dL (Negative) 04/21/20 Unknown Urine Glucose (UA) Neg mg/dL (Negative) 04/21/20 Unknown Urine Ketones Neg mg/dL (Negative) 04/21/20 Unknown Urine Blood Sm (Negative) 04/21/20 Unknown Urine Nitrite Neg (Negative) 04/21/20 Unknown Urine Bilirubin Neg (Negative) 04/21/20 Unknown Urine Urobilinogen < 2.0 mg/dL (<2.0) 04/21/20 Unknown Ur Leukocyte Esterase Neg (Negative) 04/21/20 Unknown Urine WBC (Auto) < 1.0 /HPF (0.0-6.0) 04/21/20 Unknown Urine RBC (Auto) 1.0 /HPF (0.0-6.0) 04/21/20 Unknown U Epithel Cells (Auto) 1.0 /HPF (0-13.0) 04/21/20 Unknown [place]/IV: Voiding Method Urinal IV Catheter Type [Left Peripheral IV Antecubital] Active Medications - Current Medications Current Medications: Generic Name Dose Route Start Last Admin Trade Name Freq PRN Reason Stop Dose Admin Albuterol 2 puff 04/21/20 22:56 Albuterol 8.5 Gm Mdi Inhalation IH Q4HRT PRN Shortness Of Breath Divalproex Sodium 250 mg 04/21/20 23:00 04/22/20 10:[address] 250 Mg Tab PO 250 mg TID VERONICA Administration Dextrose/Sodium Chloride 1,000 mls @ 75 mls/hr 04/21/20 08:00 04/21/20 10:28 D5/0.45ns IV 75 mls/hr DIRECT VERONICA Administration Piperacillin Sod/Tazobactam Sod 4.5 gm in 100 mls @ 200 mls/hr 04/21/20 15:00 04/22/20 06:06 Zosyn/Ns 4.5gm/100ml IV Not Given Q8H VERONICA Protocol Lactated Ringer's 1,000 mls @ 75 mls/hr 04/21/20 13:15 04/21/20 22:17 Lactated Ringers IV 75 mls/hr DIRECT VERONICA Administration Miscellaneous Medication 600 mg 04/21/20 23:00 04/21/20 23:48 Gabapentin 600mg Tablet PO 600 mg QPM VERONICA Administration Morphine Sulfate 2 mg 04/21/20 08:00 04/22/20 06:46 Morphine 2 Mg/1 Ml Inj IV 2 mg Q3H PRN Administration Pain , Severe (7-10) Nicotine 14 mg 04/22/20 11:00 04/22/20 10:53 Nicotine 14 Mg/24 Hr Patch TD 14 mg QDAY VERONICA Administration Olanzapine 10 mg 04/21/20 23:00 04/21/20 23:48 Olanzapine 10 Mg Tab PO 10 mg QPM VERONICA Administration Ondansetron HCl 4 mg 04/21/20 08:00 Ondansetron 4 Mg/2 Ml Inj IV Q6H PRN N/V unrelieved by Cyrus Sertraline HCl 50 mg 04/21/20 23:00 04/22/20 10:01 Sertraline 50 Mg Tab PO 50 mg QDAY VERONICA Administration Tramadol HCl 50 mg 04/21/20 16:33 Tramadol 50 Mg Tab PO Q4H PRN Pain, Moderate (4-6)
--- NOTE | 2020-04-22 15:25 | Progress Note ---
Assessment and Plan 34 yo M s/p laparoscopic cholecystectomy with IOC, POD 1 Pt stable. Distal filling defect on IOC. LFTs slightly elevated today but expected post cholecystectomy. Bili is normal. Plan: 1. Reg diet, double portions 2. prn PO pain control - change to dilaudid PO. Morphine only for breakthrough pain. 3. dc IVF 4. dc abx 5. MRCP ordered - distal filling defect was seen on IOC. Called MRI this am but no answer. Per nursing supervisor concrete stone fabricating, no MRI coverage for routine cases on weekend. Will likely get done on Friday. If MRCP is negative, patient is cleared for dc from surgery standpoint. If positive for choledocolithiasis, recommend GI consultation. 6. social and human services assistant consult pending. Pt states he will be going home with his mother upon dc Will s/o. Pt may follow up in surgery clinic in 2 weeks after dc. Plan discussed in detail with patient Thank you, please call with questions. Subjective Date of service: 04/22/20 Narrative: Pt seen and examined. Minimal discomfort at incision sites. Tolerating diet, asking for double portions. No n/v, f/c. Ambulating around the room on his own. Took a shower today. Objective Vital Signs - 12hr 04/22/20 04/22/20 04/22/20 03:23 07:32 11:36 Temperature 98.3 F 97.9 F 98.0 F Pulse Rate 48 L 54 L 56 L Respiratory 18 20 20 Rate Blood Pressure 110/51 109/60 111/57 O2 Sat by Pulse 95 98 98 Oximetry - General physical appearance Narrative Exam: Gen; AAOx3. NAD CV: S1, S2+ Resp: even and unlabored Abd: soft, NT, ND. Incisions c/d/i Ext: no c/c/e - Labs 04/22/20 05:28 04/22/20 05:28 Diabetes panel 04/22/20 Range/Units 05:28 Sodium 139 (137-145) mmol/L Potassium 4.7 (3.6-5.0) mmol/L Chloride 105.1 (98-107) mmol/L Carbon Dioxide 26 (22-30) mmol/L BUN 11 (9-20) mg/dL Creatinine 0.8 (0.8-1.3) mg/dL Glucose 121 H (75-100) mg/dL Calcium 9.1 (8.4-10.2) mg/dL AST 92 H (5-40) units/L ALT 189 H (7-56) units/L Alkaline Phosphatase 87 (35-129) units/L Total Protein 5.8 L (6.3-8.2) g/dL Albumin 3.3 L (3.9-5) g/dL Calcium panel 04/22/20 Range/Units 05:28 Calcium 9.1 (8.4-10.2) mg/dL Albumin 3.3 L (3.9-5) g/dL Pituitary panel 04/22/20 Range/Units 05:28 Sodium 139 (137-145) mmol/L Potassium 4.7 (3.6-5.0) mmol/L Chloride 105.1 (98-107) mmol/L Carbon Dioxide 26 (22-30) mmol/L BUN 11 (9-20) mg/dL Creatinine 0.8 (0.8-1.3) mg/dL Glucose 121 H (75-100) mg/dL Calcium 9.1 (8.4-10.2) mg/dL Adrenal panel 04/22/20 Range/Units 05:28 Sodium 139 (137-145) mmol/L Potassium 4.7 (3.6-5.0) mmol/L Chloride 105.1 (98-107) mmol/L Carbon Dioxide 26 (22-30) mmol/L BUN 11 (9-20) mg/dL Creatinine 0.8 (0.8-1.3) mg/dL Glucose 121 H (75-100) mg/dL Calcium 9.1 (8.4-10.2) mg/dL Total Bilirubin 0.20 (0.1-1.2) mg/dL AST 92 H (5-40) units/L ALT 189 H (7-56) units/L Alkaline Phosphatase 87 (35-129) units/L Total Protein 5.8 L (6.3-8.2) g/dL Albumin 3.3 L (3.9-5) g/dL
[2020-04-22] MEDS ORDERED: GABAPENTIN 300 MG CAP PO SCH (18:00)
[2020-04-22] MEDS: HYDROmorphone 2 MG TAB PO PRN (18:31)
[2020-04-23] MEDS: HYDROmorphone 2 MG TAB PO PRN (08:12)
[2020-04-23] MEDS: NICOTINE 14 MG/24 HR PATCH TD SCH (08:13)
[2020-04-23] MEDS: DIVALPROEX DR 250 MG TAB PO SCH (08:13)
[2020-04-23] MEDS: SERTRALINE 50 MG TAB PO SCH (08:13)
--- NOTE | 2020-04-23 11:07 | Discharge Summary ---
Providers - Providers Date of Admission: 04/21/20 07:11 Date of discharge: 04/23/20 Attending physician: SUKHJINDER ANGULO MD 04/21/20 07:13 Consult to Physician [CONS] Routine Comment: Consulting Provider: LETHA DUNN Physician Instructions: Reason For Exam: acute cholecystitis 04/21/20 10:42 Consult to Case Management [CONS] Routine Services Needed at Discharge: German Tutor Notified:: n/a Additional Physician Instructions: Patient homeless [facility] Reason for admission: Cholecystitis Condition: Stable Pertinent studies: Right upper quadrant ultrasound Procedures: Laparoscopic cholecystectomy Hospital course: 34-year-old male with past medical history significant for schizophrenia, bipolar disorder, diabetes mellitus, depression, asthma presented to the emergency department with complaints of epigastric pain, nausea and vomiting. Patient states symptoms has been going on for the last 4 years intermittently and getting worse recently. Currently he stated pain is 10 out of 10, crampy, with radiation to the back. He said he has persistent nausea and vomiting especially in the morning. Patient said he was in [place] and they took him out last night and abscess and he presented to the emergency department. Work-up in the emergency department showed leukocytosis, hyperglycemia. Vital signs are stable. CT abdomen pelvis, abdominal ultrasound was done and showed suggestive of cholecystitis. No obstructing stone identified. Neurosurgery was consulted in the emergency department and patient admitted for cholecystectomy. Patient was admitted and had laparoscopic cholecystectomy and patient is tolerating diet. Surgery cleared him for discharge with follow-up with Dr. Dunn in the office in 2 weeks. Patient was doing well. Case management was consulted and they contacted his aunt and she will come and take him home. Patient was hemodynamically stable at the time of discharge. Disposition: DC-01 TO HOME OR SELFCARE Time spent for discharge: 32 minutes - Discharge Diagnoses (1) Acute cholecystitis Status: Acute Core Measure Documentation - Palliative Care Palliative Care/ Comfort Measures: Not Applicable - Core Measures Any of the following diagnoses?: none Exam - Physical Exam Narrative exam: Not in cardiopulmonary distress. The patient appeared well nourished and normally developed. Vital signs as documented. Head exam is unremarkable. No scleral icterus . Neck is without jugular venous distension, thyromegaly, or carotid bruits. Lungs are clear to auscultation. Cardiac exam reveals regular rate and Rhythm. Abdominal exam reveals normal bowel sounds, nontender, no organomegaly. Extremities are nonedematous and both femoral and pedal pulses are normal. SENIOR SHAREPOINT DEVELOPER: Alert and oriented 3. No focal weakness. - Constitutional Vitals: Temp Pulse Resp BP Pulse Ox 97.5 F L 52 L 16 146/77 99 04/23/20 08:00 04/23/20 08:00 04/23/20 09:12 04/23/20 08:00 04/23/20 08:00 Plan Activity: no restrictions Weight Bearing Status: Full Weight Bearing Diet: advance as tolerated Follow up with: LETHA DUNN DO [Staff Physician] - 14 Days MIRAMAR BEACH TEE RUANO MD [Primary Care Provider] - 3-5 Days
[2020-04-23 12:28] VITALS: BP 146/71
== END 2020-04-23 11:55 | disposition home or self-care (01) ==
LOC: ED 00:15 → 3A 07:11 → 3B-SURG 19:15 → 3A 20:00 → 3B 20:01
PROVIDERS: ADMIT Internal Medicine; ATTEND Internal Medicine
DX: K81.0 Acute cholecystitis (principal); F20.0 Paranoid schizophrenia; J45.909 Unspecified asthma, uncomplicated; F31.9 Bipolar disorder, unspecified; E11.9 Type 2 diabetes mellitus without complications; E03.9 Hypothyroidism, unspecified; K21.9 Gastro-esophageal reflux disease without esophagitis; K58.9 Irritable bowel syndrome, unspecified; Z79.899 Other long term (current) drug therapy; Z59.0 Homelessness
CPT/HCPCS: 36415; 47563; 74177; 74300; 76705; 80053; 81001; 82140; 83690; 85025; 88304; 96361; 96365; 96366; 96375; 96376; 99284; A4217; C9113; G0378; J1100; J1170; J1885; J2270; J2405; J2543; J2704; J2710; J7030; J7120; Q9967

== ENCOUNTER 2020-06-09 10:02 | Outpatient (CLI) | payer MEDICARE ==
--- NOTE | 2020-06-09 12:28 | Magnetic Resonance Report ---
MR ABDOMEN MRCP HISTORY: Obstruction of bile duct, abdominal pain TECHNIQUE: Multisequence, multiplanar MRI without contrast. Thin slab and radial MRCP images. COMPARISON: CT abdomen and pelvis 04/21/2020. Ultrasound right upper quadrant 04/21/2020. FINDINGS: Cholecystectomy has been performed since the previous exam. The MRCP images demonstrate a normal panc reaticobiliary tree. There is no evidence for choledocholithiasis or abnormal dilatation. The CBD pancho sures 3-4 mm. The intrahepatic ducts are normal. Signal characteristics of the liver, pancreas, spleen, adrenal glands, kidneys and visualized bowel l oops are within normal limits. 1 cm simple left renal cyst is noted. The aorta and vascular structures are widely patent. No evidence for free fluid, adenopathy or inflam matory changes. Normal bone marrow signal in the visualized osseous structures. IMPRESSION: Cholecystectomy. Otherwise, unremarkable MRCP. Signer Name: Romaine Alejo Jr, MD Signed: 06/09/2020 12:24 PM Workstation Name: [id number]
== END 2020-06-09 10:03 | disposition home or self-care (01) ==
LOC: MRI 10:02
PROVIDERS: ATTEND Surgery
DX: N28.1 Cyst of kidney, acquired (principal); Z90.49 Acquired absence of other specified parts of digestive tract
CPT/HCPCS: 74181